=== PATIENT | male | born 1955 | race Caucasian/White ===

== ENCOUNTER → 2022-04-25 | Outpatient (CLI) | payer MEDICARE, SELFPAY ==
[2022-04-25 22:31] LABS: Absolute Lymphocyte Count 3.87 X10^3/uL (0.83-4.51); Absolute Neutrophil Count 5.8 X10^3/uL (2.0-7.7); Basophil# 0.12 X10^3/uL; Basophil% 1.1 % (0-1); Eosinophil# 0.45 X10^3/uL; Hematocrit 48.6 % (40-54); Hemoglobin 16.4 g/dL (13.0-16.5); Lymphocyte # 3.87 X10^3/ul (0.83-4.51); Lymphocyte % 34.4 % (19-41); Mean Corp Hgb Conc 33.7 g/dL (32-36); Mean Corpuscular Volume 100.8 fL (80-94); Mean Platelet Vol. 10.4 fl (6.2-12.0); Monocyte# 0.97 X10^3/uL; Monocyte% 8.6 % (0-10); NRBC Flagged by Analyzer 0 % (0-5); Neutrophil # 5.79 X10^3/uL (2.7-7.7); Neutrophil % 51.5 % (47-70); Platelet Count 389 K/mm3 (150-450); RBC Distribution Width CV 13.1 % (11.6-14.6); RBC Distribution Width SD 48.9 fl (35.1-43.9); Red Blood Count 4.82 M/mm3 (4.6-6.2); White Blood Count 11.3 K/mm3 (4.4-11.0)
[2022-04-25 22:48] LABS: ALB/GLOB Ratio 0.9 RATIO (0.9-2.4); AST(SGOT) 18 U/L (15-37); Alanine Aminotransfer ALT/SGPT 34 U/L (16-61); Albumin, Serum 3.7 g/dL (3.2-5.0); Alkaline Phosphatase 81 U/L (45-117); Anion Gap 7 (5-15); BUN 18 mg/dL (7-18); Calcium,Total 9.1 mg/dL (8.5-10.1); Chloride 103 mmol/L (98-107); Cholesterol 284 mg/dL (200); Creatinine, Serum 1.06 mg/dL (0.70-1.30); EST Glomerular Filtration Rate 74 mL/min (>60); Est Glom Filt Rate - Afr Amer 90 mL/min (>60); Globulin 4.1 g/dL (2.2-4.2); Glucose 134 mg/dL (74-106); High Density Lipoprotein 38 mg/dL; PSA,Total - Annual Screen 2.47 ng/mL (0.00-4.00); Potassium 4.7 mmol/L (3.5-5.1); Protein, Total 7.8 g/dL (6.4-8.2); Sodium Level 135 mmol/L (136-145); Triglycerides 219 mg/dL; Very Low Density Lipoprotein 44 mg/dL (5-40)
== END | disposition home or self-care (01) ==
PROVIDERS: Visit Provider Nurse Practitioner
DX: I10 Essential (primary) hypertension (principal); F41.9 Anxiety disorder, unspecified; E78.5 Hyperlipidemia, unspecified; Z12.5 Encounter for screening for malignant neoplasm of prostate
CPT/HCPCS: 80053; 80061; 84153; 85025; G0103

== ENCOUNTER 2023-11-27 20:00 | Emergency (ER) | payer MEDICARE, SELFPAY ==
[2023-11-27 20:00] VITALS: BP 141/93; PULSE 71; RESP 16; TEMP 36.6; O2SAT 98; BMI 24.6
--- NOTE | 2023-11-27 22:36 | EDS_ITS ---
HPI History of Present Illness Chief Complaint: Anxiety Informant: patient Onset/Context/Timing Onset: Month(s) Context: Gradual Onset Timing: Continuous Quality: Anxiety Location: Generalized Worsened by: Pending surgery Relieved by: Nothing Narrative Narrative: Patient presents with paresthesias in his feet and ankles that have became worse today. Patient states that he has been having increasing anxiety over his left inguinal hernia. Patient states he is unable to have surgery until he has been on anticoagulants for over a year. Patient states that his revenue analyst will not clear him for surgery until he has been on the anticoagulants for a year. At that time he can go off the anticoagulants for the surgery. Patient states that this is causing increasing anxiety. Patient states that today he started noticing some tingling in his feet and ankles. Patient denies any weakness. Patient denies any fevers or chills. Patient denies any chest pain or shortness of breath. Family states the patient has not been eating or sleeping well over the last month. Patient is currently on buspirone and trazodone to help with sleep. Patient has as needed hydroxyzine. Patient states none of this has been helping. [facility] Medical History STEMI (ST elevation myocardial infarction) Recovering alcoholic Anxiety Hypertension Home Medications ?Medication ?Instructions ?Recorded ?Last Taken ?Type cholecalciferol (vitamin D3) 250 10,000 unit PO DAILY 01/28/19 Unknown History mcg (10,000 unit) capsule multivitamin 1 cap PO DAILY 01/28/19 Unknown History omega-3 fatty acids 1,000 mg 1,000 mg PO DAILY 01/28/19 Unknown History capsule zinc 50 mg tablet 50 mg PO DAILY 03/26/20 Unknown History sildenafil 100 mg tablet 100 mg PO DAILY PRN sexual 08/17/23 Unknown Rx activity #10 tabs aspirin 81 mg chewable tablet 81 mg PO DAILY 09/09/23 Unknown History clopidogrel 75 mg tablet 75 mg PO DAILY 09/09/23 Unknown History losartan 50 mg tablet 50 mg PO DAILY 09/09/23 Unknown History metoprolol succinate 50 mg 50 mg PO DAILY 09/09/23 Unknown History tablet,extended release 24 hr pantoprazole 40 mg tablet,delayed 40 mg PO DAILY 09/09/23 Unknown History release rosuvastatin 40 mg tablet 40 mg PO DAILY 09/09/23 Unknown History clonazepam 1 mg tablet (Klonopin) 1 mg PO TID 30 days #90 tabs 09/30/23 Unknown Rx buspirone 10 mg tablet 10 mg PO TID #270 tabs 11/19/23 Unknown Rx hydroxyzine HCl 10 mg tablet 10 mg PO TID-QID PRN anxiety #45 11/23/23 Unknown Rx tabs trazodone 50 mg tablet 50 mg PO QHS #30 tabs 11/24/23 Unknown Rx Allergy/AdvReac Type Severity Reaction Status Date / Time Sulfa (Sulfonamide Allergy Severe feels like Verified 10/12/23 13:00 Antibiotics) a million bees stinging Family History (Reviewed 11/19/23 @ 22:27 by Ne Trotter [employer], [employer]-C) Other AAA (abdominal aortic aneurysm) Heart disease Hypertension Thyroid disorder Surgical History H/O left inguinal hernia repair Social History Smoking Status: Heavy Smoker (>10/day) ROS ROS ED Constitutional Constitutional ED: Denies chills or fever(s) Eyes Eyes: Denies blurry vision or change in vision ENT ENT ED: Denies rhinorrhea or sore throat Cardiovascular Cardiovascular: Denies chest pain or palpitations Respiratory/Chest Respiratory/Chest: Denies cough or dyspnea Gastrointestinal Gastrointestinal: Denies nausea or vomiting Genitourinary Genitourinary ED: Denies dysuria or hematuria Musculoskeletal Musculoskeletal: Reports back pain; Denies neck pain Integumentary Denies abscess or rash Neurologic Neurologic: Reports headache(s) and paresthesias RLE and LLE; Denies weakness Psychiatric Psychiatric: Reports anxiety Allergic/Immunologic Allergic/Immunologic ED: Denies mouth swelling or urticaria EXAM Physical Exam Const Vital Signs: 11/27/23 20:00 Temperature 97.8 F Temperature Source Oral Pulse Rate 71 Respiratory Rate 16 Blood Pressure 141/93 H Blood Pressure Mean 109 Pulse Ox 98 Oxygen Delivery Method Room Air Positive well nourished and well developed General Appearance ED: well developed and NAD HEENT Reports moist mucous membranes Neck supple and no JVD Resp normal respiratory effort and clear to auscultation bilaterally Cardio regular rate and regular rhythm GI non-tender and non-distended Palpation: soft Extremity normal to inspection General Extremety ED: Negative for edema or tenderness General Extremity: Negative for edema Neuro oriented x3, CN's II-XII intact bilaterally and no sensory deficits noted Sensorium / Orientation: alert Motor Exam: strength 5/5 throughout MDM MDM MDM Narrative Medical decision making narrative: Patient was advised that his paresthesias are most likely from his anxiety. Patient was given a dose of Ativan here. Patient was instructed to continue his medications as previously prescribed. Patient was instructed to follow-up with his primary care physician for further adjustments of his medications. Patient was instructed to return if worse in any way. Patient understood and was agreeable with the plan. All questions were answered. Discharge Plan Triage Chief Complaint: Anxiety ED Provider: Nav Parrish Dx/Rx/DC Orders Clinical Impression: Anxiety, Hypertension Instructions: ED Anxiety Reaction Prescriptions: No Action cholecalciferol (vitamin D3) 10,000 unit capsule 10,000 unit PO DAILY omega-3 fatty acids 1,000 mg capsule 1,000 mg PO DAILY multivitamin Capsule 1 cap PO DAILY zinc 50 mg tablet 50 mg PO DAILY metoprolol succinate 50 mg tablet extended release 24 hr 50 mg PO DAILY rosuvastatin 40 mg tablet 40 mg PO DAILY aspirin 81 mg tablet,chewable 81 mg PO DAILY clopidogrel 75 mg tablet 75 mg PO DAILY losartan 50 mg tablet 50 mg PO DAILY pantoprazole 40 mg tablet,delayed release (DR/EC) 40 mg PO DAILY clonazepam [Klonopin] 1 mg tablet 1 mg PO TID 30 Days Qty: 90 5RF buspirone 10 mg tablet 10 mg PO TID Qty: 270 3RF Rx Instructions: take 3 x a day hydroxyzine HCl 10 mg tablet 10 mg PO TID-QID PRN (Reason: anxiety) Qty: 45 12RF sildenafil 100 mg tablet 100 mg PO DAILY PRN (Reason: sexual activity) Qty: 10 12RF Rx Instructions: administer 30 minutes to 4 hours before activity trazodone 50 mg tablet 50 mg PO QHS Qty: 30 0RF Primary Care Provider: Ne Trotter Referrals: Ne Trotter [Primary Care Provider] - 3-5 Days Print Language: Persian Disposition Disposition: Home, Self Care
[2023-11-27 23:14] VITALS: BP 150/89; PULSE 68; RESP 16; TEMP 37.1; O2SAT 97
[2023-11-27] MEDS: LORazepam 1 MG Tablet PO (23:23)
== END 2023-11-27 23:31 | disposition home or self-care (01) ==
LOC: ED 23:06
PROVIDERS: Emergency Provider Emergency Medicine; Visit Provider Emergency Medicine
DX: F41.9 Anxiety disorder, unspecified (principal); I10 Essential (primary) hypertension; I25.2 Old myocardial infarction; F17.200 Nicotine dependence, unspecified, uncomplicated; Z88.2 Allergy status to sulfonamides; Z79.01 Long term (current) use of anticoagulants; Z79.82 Long term (current) use of aspirin; Z79.899 Other long term (current) drug therapy
CPT/HCPCS: 99282

== ENCOUNTER 2023-11-29 18:21 | Emergency (ER) | payer MEDICARE, SELFPAY ==
[2023-11-29 18:23] VITALS: BP 144/75; PULSE 67; RESP 18; TEMP 36.1; O2SAT 97; BMI 22.4
[2023-11-29] MEDS: LORazepam 0.5 MG Tablet PO (18:55)
[2023-11-29 18:57] VITALS: BP 140/77; PULSE 81; RESP 17; TEMP 36.8; O2SAT 98
--- NOTE | 2023-11-29 19:02 | EDS_ITS ---
HPI <SHAHIDA Llanos - Last Filed: 11/29/23 19:18> HPI - Psych History of Present Illness Chief Complaint: Anxiety Narrative Narrative: Patient presenting today due to anxiety. He reports that he has been struggling with anxiety over the last few months because he is nervous about a hernia surgery that he will be undergoing in February. He has been following with his PCP for this, he was taking clonazepam with minimal relief of his anxiety. He now is taking hydroxyzine and buspirone. However, despite being on medications he is still struggling with anxiety. At times he has a difficult time sleeping due to his thoughts racing. He denies any SI, HI, hallucinations, substance use, or self-harm. He reports that he was seen here on Thursday and was given Ativan which seemed to help his symptoms. [facility] <SHAHIDA Llanos - Last Filed: 11/29/23 19:18> [facility] Medical History STEMI (ST elevation myocardial infarction) Recovering alcoholic Anxiety Hypertension Home Medications ?Medication ?Instructions ?Recorded ?Last Taken ?Type cholecalciferol (vitamin D3) 250 10,000 unit PO DAILY 01/28/19 Unknown History mcg (10,000 unit) capsule omega-3 fatty acids 1,000 mg 1,000 mg PO DAILY 01/28/19 Unknown History capsule sildenafil 100 mg tablet 100 mg PO DAILY PRN sexual 08/17/23 Unknown Rx activity #10 tabs aspirin 81 mg chewable tablet 81 mg PO DAILY 09/09/23 Unknown History clopidogrel 75 mg tablet 75 mg PO DAILY 09/09/23 Unknown History losartan 50 mg tablet 50 mg PO DAILY 09/09/23 Unknown History metoprolol succinate 50 mg 50 mg PO DAILY 09/09/23 Unknown History tablet,extended release 24 hr pantoprazole 40 mg tablet,delayed 40 mg PO DAILY 09/09/23 Unknown History release rosuvastatin 40 mg tablet 40 mg PO DAILY 09/09/23 Unknown History buspirone 10 mg tablet 10 mg PO TID #270 tabs 11/19/23 Unknown Rx hydroxyzine HCl 10 mg tablet 10 mg PO TID-QID PRN anxiety #45 11/23/23 Unknown Rx tabs trazodone 50 mg tablet 50 mg PO QHS #30 tabs 11/24/23 Unknown Rx lorazepam 0.5 mg tablet (Ativan) 0.5 mg PO DAILY PRN anxiety #3 tabs 11/29/23 Unknown Rx Allergy/AdvReac Type Severity Reaction Status Date / Time Sulfa (Sulfonamide Allergy Severe feels like Verified 11/29/23 18:23 Antibiotics) a million bees stinging Family History Other AAA (abdominal aortic aneurysm) Heart disease Hypertension Thyroid disorder Surgical History H/O left inguinal hernia repair Social History Smoking Status: Heavy Smoker (>10/day) ROS <SHAHIDA Llanos - Last Filed: 11/29/23 19:18> ROS ED Constitutional Constitutional ED: Denies chills or fever(s) Cardiovascular Cardiovascular: Denies chest pain Respiratory/Chest Respiratory/Chest: Denies dyspnea Gastrointestinal Gastrointestinal: Denies abdominal pain, nausea or vomiting Musculoskeletal Musculoskeletal: Denies arthralgias or myalgias Integumentary Denies rash Neurologic Neurologic: Denies weakness Psychiatric Psychiatric: Reports anxiety; Denies hallucinations, homicidal ideation, suicidal ideation or suicidal thoughts EXAM <SHAHIDA Llanos - Last Filed: 11/29/23 19:18> Physical Exam Const Vital Signs: 11/29/23 18:23 11/29/23 18:57 Temperature 97 F L 98.2 F Temperature Source Temporal Pulse Rate 67 81 Respiratory Rate 18 17 Blood Pressure 144/75 H 140/77 H Blood Pressure Mean 98 98 Pulse Ox 97 98 Oxygen Delivery Method Room Air Positive well nourished, well developed and no apparent distress General Appearance ED: well developed HEENT Reports normocephalic and head/scalp atraumatic Mouth ED: Yes moist mucous membranes normal Eyes PERRL and EOMs intact bilaterally Neck full ROM and supple Chest Wall inspection of chest normal Resp normal respiratory effort and clear to auscultation bilaterally Cardio regular rate and regular rhythm Back/Spine normal ROM and normal to inspection Extremity normal to inspection and full ROM Neuro oriented x3, CN's II-XII intact bilaterally, moves all extremities, no focal motor deficits and no sensory deficits noted Sensorium / Orientation: awake and alert Psych mental status grossly normal, thought process normal, cooperative, affect normal, activity/motor behavior normal, denies hallucinations, denies homicidal ideation and denies suicidal ideation Appearance: grossly normal Attitude: calm Activity / Motor Behavior: appropriate eye contact Speech: normal speech Thought Process: normal thought process Insight: insight good Judgement: judgement good Skin no rashes or lesions noted and no wounds <Bertin Nair MD - Last Filed: 11/29/23 19:42> Physical Exam Const Vital Signs: 11/29/23 18:23 11/29/23 18:57 Temperature 97 F L 98.2 F Temperature Source Temporal Pulse Rate 67 81 Respiratory Rate 18 17 Blood Pressure 144/75 H 140/77 H Blood Pressure Mean 98 98 Pulse Ox 97 98 Oxygen Delivery Method Room Air [facility] <SHAHIDA Llanos - Last Filed: 11/29/23 19:18> [facility] Narrative Medical decision making narrative: Patient presenting today due to anxiety. He does have a history of anxiety and was taking clonazepam which did not seem to be helping, he now takes buspirone and hydroxyzine. He does follow with his PCP for this. He has been more anxious recently due to a hernia surgery that he has scheduled for February. He was seen on Thursday in the ED and was given Ativan which did seem to provide him much relief, he reports that he was able to fully sleep through the night after having this for the first time in a while. Patient is requesting a few Ativan to get him through until he can see his PCP. He will be on 0.5 mg here with 3 for home. I did encourage him to follow-up with his PCP. I also encouraged that he follow-up with a counselor as he used to see 1 in the past. Given he does not have any HI, SI, he is not a harm to himself or others, he will be discharged home in stable condition. <Bertin Nair MD - Last Filed: 11/29/23 19:42> [facility] Narrative Medical decision making narrative: Patient presenting today due to anxiety. He does have a history of anxiety and was taking clonazepam which did not seem to be helping, he now takes buspirone and hydroxyzine. He does follow with his PCP for this. He has been more anxious recently due to a hernia surgery that he has scheduled for February. He was seen on Thursday in the ED and was given Ativan which did seem to provide him much relief, he reports that he was able to fully sleep through the night after having this for the first time in a while. Patient is requesting a few Ativan to get him through until he can see his PCP. He will be on 0.5 mg here with 3 for home. I did encourage him to follow-up with his PCP. I also encouraged that he follow-up with a counselor as he used to see 1 in the past. Given he does not have any HI, SI, he is not a harm to himself or others, he will be discharged home in stable condition. Dr. Nair: I have personally performed a face to face assessment of the patient and have reviewed the CONOR Note. I performed a substantive portion of the visit including all aspects of the following. My aguilar findings include: History is presents to the emergency department with history of anxiety wanting lorazepam 1 mg. He is on BuSpar, low-dose Atarax, and trazodone at night which she states is not working. Was seen in the emergency department 2 days ago and had workup and received Ativan 1 mg. He presents today wanting the same medication because it was most effective. Exam is afebrile. Vital signs noted. Regular rate and rhythm. Lungs clear to auscultation bilaterally. Abdomen soft nontender with normal active bowel sounds. Medical Decision Making: I reviewed the patient's prior ED visit. I had a lengthy discussion with him regarding the use of benzodiazepines. He was told that these medications need to be titrated by his primary care provider. I did review his [facility] report and he received 90 clonazepam back in September, 2 months ago. He states that this was discontinued. He was given lorazepam 0.5 mg here in the emergency department and prescription written for 3 tablets to get him through until tomorrow when he can call his primary care provider for this. He was also told that he is not to return to the emergency department requesting further prescriptions for benzodiazepines or other controlled substances. Disposition is discharged home in stable condition. Other additions or changes: [None] History & Record Review Discussion w/independent historian: Patient Additional record(s) reviewed:: Prior ED visit and Other ([facility] report) Discharge Plan Triage Chief Complaint: Anxiety ED Midlevel Provider: Misa March ED Provider: Bertin Nair Dx/Rx/DC Orders Clinical Impression: Anxiety Instructions: Anxiety Disorders Tx Prescriptions: New lorazepam [Ativan] 0.5 mg tablet 0.5 mg PO DAILY PRN (Reason: anxiety) Qty: 3 0RF No Action cholecalciferol (vitamin D3) 10,000 unit capsule 10,000 unit PO DAILY omega-3 fatty acids 1,000 mg capsule 1,000 mg PO DAILY metoprolol succinate 50 mg tablet extended release 24 hr 50 mg PO DAILY rosuvastatin 40 mg tablet 40 mg PO DAILY aspirin 81 mg tablet,chewable 81 mg PO DAILY clopidogrel 75 mg tablet 75 mg PO DAILY losartan 50 mg tablet 50 mg PO DAILY pantoprazole 40 mg tablet,delayed release (DR/EC) 40 mg PO DAILY buspirone 10 mg tablet 10 mg PO TID Qty: 270 3RF Rx Instructions: take 3 x a day hydroxyzine HCl 10 mg tablet 10 mg PO TID-QID PRN (Reason: anxiety) Qty: 45 12RF sildenafil 100 mg tablet 100 mg PO DAILY PRN (Reason: sexual activity) Qty: 10 12RF Rx Instructions: administer 30 minutes to 4 hours before activity trazodone 50 mg tablet 50 mg PO QHS Qty: 30 0RF Patient Comments: only been taking it for a week, pt. believes it is not working Primary Care Provider: Ne Trotter Referrals: Ne Trotter [Primary Care Provider] - 2 Days Activity Restrictions/Additional Instructions: Please follow-up with your PCP, return for any other concerns. Print Language: Japanese Disposition Disposition: Home, Self Care Discharge Date/Time: 11/29/23 19:27
== END 2023-11-29 19:27 | disposition home or self-care (01) ==
PROVIDERS: Emergency Provider Emergency Medicine; Visit Provider Emergency Medicine
DX: F41.9 Anxiety disorder, unspecified (principal); Z79.899 Other long term (current) drug therapy; I25.2 Old myocardial infarction; I10 Essential (primary) hypertension; Z79.82 Long term (current) use of aspirin
CPT/HCPCS: 99282

== ENCOUNTER → 2024-01-14 | Outpatient (CLI) | payer MEDICARE, SELFPAY ==
[2024-01-14 21:40] LABS: Absolute Lymphocyte Count 2.25 X10^3/uL (0.83-4.51); Basophil# 0.07 X10^3/uL; Basophil% 0.6 % (0-1); Eosinophil# 0.04 X10^3/uL; Eosinophils% 0.3 % (0-5); Hematocrit 44.4 % (40-54); Hemoglobin 15.5 g/dL (13.0-16.5); Lymphocyte # 2.25 X10^3/ul (0.83-4.51); Lymphocyte % 18.3 % (19-41); Mean Corp Hgb Conc 34.9 g/dL (32-36); Mean Corpuscular Hgb 33.8 pg (27.0-32.0); Mean Corpuscular Volume 96.7 fL (80-94); Mean Platelet Vol. 9.4 fl (6.2-12.0); Monocyte# 0.83 X10^3/uL; Monocyte% 6.8 % (0-10); NRBC Flagged by Analyzer 0 % (0-5); Neutrophil # 9.04 X10^3/uL (2.7-7.7); Neutrophil % 73.6 % (47-70); Platelet Count 392 K/mm3 (150-450); RBC Distribution Width CV 12.5 % (11.6-14.6); RBC Distribution Width SD 44.2 fl (35.1-43.9); Red Blood Count 4.59 M/mm3 (4.6-6.2); White Blood Count 12.3 K/mm3 (4.4-11.0)
[2024-01-14 21:48] LABS: ALB/GLOB Ratio 1.1 RATIO (0.9-2.4); AST(SGOT) 13 U/L (15-37); Alanine Aminotransfer ALT/SGPT 20 U/L (16-61); Albumin, Serum 3.8 g/dL (3.2-5.0); Alkaline Phosphatase 79 U/L (45-117); Anion Gap 10 (5-15); BUN 15 mg/dL (7-18); BUN/Creat Ratio 18.8 RATIO (10-20); Calcium,Total 8.7 mg/dL (8.5-10.1); Chloride 104 mmol/L (98-107); Cholesterol 107 mg/dL (200); EST Glomerular Filtration Rate 103 mL/min (>60); Est Glom Filt Rate - Afr Amer 124 mL/min (>60); Globulin 3.5 g/dL (2.2-4.2); Glucose 125 mg/dL (74-106); High Density Lipoprotein 60 mg/dL; Potassium 3.4 mmol/L (3.5-5.1); Protein, Total 7.3 g/dL (6.4-8.2); Sodium Level 136 mmol/L (136-145); Triglycerides 105 mg/dL; Very Low Density Lipoprotein 21 mg/dL (5-40)
== END | disposition home or self-care (01) ==
PROVIDERS: PCP Nurse Practitioner; Referring Provider Nurse Practitioner; Visit Provider Nurse Practitioner
DX: K40.90 Unilateral inguinal hernia, without obstruction or gangrene, not specified as recurrent (principal); E78.5 Hyperlipidemia, unspecified; I10 Essential (primary) hypertension; F41.9 Anxiety disorder, unspecified
CPT/HCPCS: 80053; 80061; 85025